=== PATIENT | female | born 1970 | race Asian ===

== ENCOUNTER → 2019-06-06 | Outpatient (CLI) | payer OTHER ==
[2019-06-07 06:06] LABS: RUBELLA AB IGG-REFLAB 3.92 index (Immune >0.99)
[2019-06-07 07:06] LABS: RUBEOLA (MEASLES) IGG >300.0 AU/mL (Immune >16.4)
== END | disposition home or self-care (01) ==
LOC: LABMN 07:48
PROVIDERS: ATTEND Internal Medicine
DX: Z02.1 Encounter for pre-employment examination (principal)
CPT/HCPCS: 86706; 86735; 86762; 86765; 86787

== ENCOUNTER 2022-03-31 10:53 | Inpatient (IN) | payer OTHER ==
[~2022-03-31] VITALS: Ht 157.5 cm; Wt 53.1 kg
[2022-03-31] MEDS ORDERED: ONDANSETRON HCL 4 MG TABLET PO PRN (16:15)
[2022-03-31 17:11] VITALS: BP 181/85
[2022-03-31 18:34] VITALS: BP 135/86
[2022-03-31] MEDS ORDERED: INFLUENZA VIRUS VACCINE QVS 2022-23 (6MO+)/PF 60 MCG/0.5 ML SYRINGE IM. ONE (19:00)
[2022-03-31] MEDS ORDERED: PNEUMOCOCCAL VACCINE POLYVALENT 0.5 ML VIAL [PPSV23] IM. ONE (19:00)
[2022-03-31 20:32] VITALS: BP 144/74
[2022-03-31] MEDS ORDERED: CLOTRIMAZOLE 1% 10 ML SOLUTION TP SCH (21:00)
[2022-03-31] MEDS: HEPARIN SODIUM,PORCINE 5,000 UNITS/ML VIAL SQ SCH (21:11)
[2022-03-31] MEDS: ETHYL ALCOHOL 62% ANTISEPTIC NASAL SANITIZER 0.6 ML AMPUL NASAL SCH (21:11)
[2022-03-31] MEDS: SENNOSIDES 8.6 MG TABLET PO SCH (21:11)
[2022-03-31] MEDS: DOCUSATE SODIUM 100 MG CAPSULE PO SCH (21:11)
[2022-03-31] MEDS: CLOTRIMAZOLE 1% 15 GM CREAM TP SCH (21:11)
[2022-03-31] MEDS: MELATONIN 3 MG TABLET PO PRN (21:11)
[2022-04-01 05:51] LABS: EOSINOPHILS % (AUTO) 4.8 % (1.0-6.0); HEMATOCRIT 27.7 % (36-46); HEMOGLOBIN 9.4 g/dL (12.0-16.0); LYMPHOCYTES % (AUTO) 24.5 % (22.0-44.0); MEAN CORPUSCULAR HGB CONC 34.1 G/dL (31.0-37.0); MEAN CORPUSCULAR VOLUME 88 fL (80-100); MONOCYTES # (AUTO) 0.4 K/uL (0.1-1.0); MONOCYTES % (AUTO) 9.1 % (2.0-9.0); NEUTROPHILS # (AUTO) 2.4 K/uL (1.8-7.7); NEUTROPHILS % (AUTO) 60.6 % (40.0-70.0); PLATELET COUNT (AUTO) 454 K/uL (150-450); RED BLOOD CELL COUNT(AUTO) 3.14 MIL/uL (4.00-5.20)
[2022-04-01 06:21] LABS: ALANINE AMINOTRANSFERASE 61 U/L (12-78); ALKALINE PHOSPHATASE 61 U/L (46-116); ANION GAP 7 mmol/L (8-16); ASPARTATE AMINOTRANSFERASE 30 U/L (15-37); BILIRUBIN,TOTAL 0.3 mg/dL (0.1-1.0); CALCIUM, TOTAL 9.2 mg/dL (8.8-10.5); CARBON DIOXIDE 28 mmol/L (22-29); CHLORIDE 102 mmol/L (98-107); CREATININE 0.57 mg/dL (0.60-1.30); GLUCOSE,RANDOM 107 mg/dL (70-110); SODIUM SERUM 137 mmol/L (136-145); TOTAL PROTEIN, SERUM 6.6 g/dL (6.4-8.2); UREA NITROGEN, BLOOD 17 mg/dL (7-18)
[2022-04-01 06:23] LABS: GLOMERULAR FILTR. RATE CALC > 60 mL/min (>60)
[2022-04-01] MEDS: ETHYL ALCOHOL 62% ANTISEPTIC NASAL SANITIZER 0.6 ML AMPUL NASAL SCH ×2 (08:19→21:05)
[2022-04-01] MEDS: HEPARIN SODIUM,PORCINE 5,000 UNITS/ML VIAL SQ SCH ×2 (08:19→21:04)
[2022-04-01] MEDS: MULTIVITAMINS WITH MINERALS, THERAPEUTIC TABLET PO SCH (08:19)
[2022-04-01] MEDS: DOCUSATE SODIUM 100 MG CAPSULE PO SCH ×2 (08:19→21:04)
[2022-04-01] MEDS: CLOTRIMAZOLE 1% 15 GM CREAM TP SCH ×2 (08:25→21:05)
[2022-04-01] MEDS ORDERED: EPOETIN ALFA 10,000 UNITS/ML 2 ML VIAL SQ ONE (09:00)
[2022-04-01 09:15] VITALS: BP 179/89
[2022-04-01] MEDS: LISINOPRIL 20 MG TABLET PO SCH (11:07)
[2022-04-01] MEDS: NYSTATIN 500,000 UNITS/5 ML SUSPENSION UDCUP PO SCH ×3 (13:29→21:05)
[2022-04-01 16:50] VITALS: BP 148/90
[2022-04-01 21:00] VITALS: BP 137/83
[2022-04-01] MEDS: SENNOSIDES 8.6 MG TABLET PO SCH (21:04)
[2022-04-01] MEDS: MELATONIN 3 MG TABLET PO PRN (21:05)
[2022-04-01] MEDS ORDERED: LISI-657 PO (23:49)
[2022-04-02 08:00] VITALS: BP 149/89
[2022-04-02] MEDS: ETHYL ALCOHOL 62% ANTISEPTIC NASAL SANITIZER 0.6 ML AMPUL NASAL SCH ×2 (08:34→20:27)
[2022-04-02] MEDS: DOCUSATE SODIUM 100 MG CAPSULE PO SCH ×2 (08:34→20:27)
[2022-04-02] MEDS: NYSTATIN 500,000 UNITS/5 ML SUSPENSION UDCUP PO SCH ×4 (08:35→20:27)
[2022-04-02] MEDS: LISINOPRIL 20 MG TABLET PO SCH (08:35)
[2022-04-02] MEDS: MULTIVITAMINS WITH MINERALS, THERAPEUTIC TABLET PO SCH (08:35)
[2022-04-02] MEDS: HEPARIN SODIUM,PORCINE 5,000 UNITS/ML VIAL SQ SCH ×2 (08:35→20:34)
[2022-04-02] MEDS: CLOTRIMAZOLE 1% 15 GM CREAM TP SCH ×2 (08:36→20:26)
[2022-04-02] MEDS ORDERED: OxyCODONE HCL 10 MG IR TABLET PO PRN (10:00)
[2022-04-02 20:02] VITALS: BP 129/74
[2022-04-02] MEDS: SENNOSIDES 8.6 MG TABLET PO SCH (20:27)
[2022-04-03 08:00] VITALS: BP 145/75
[2022-04-03] MEDS: ETHYL ALCOHOL 62% ANTISEPTIC NASAL SANITIZER 0.6 ML AMPUL NASAL SCH ×2 (08:31→20:43)
[2022-04-03] MEDS: NYSTATIN 500,000 UNITS/5 ML SUSPENSION UDCUP PO SCH ×4 (08:31→20:43)
[2022-04-03] MEDS: LISINOPRIL 20 MG TABLET PO SCH (08:32)
[2022-04-03] MEDS: MULTIVITAMINS WITH MINERALS, THERAPEUTIC TABLET PO SCH (08:32)
[2022-04-03] MEDS: HEPARIN SODIUM,PORCINE 5,000 UNITS/ML VIAL SQ SCH ×2 (08:32→20:44)
[2022-04-03] MEDS: DOCUSATE SODIUM 100 MG CAPSULE PO SCH ×2 (08:33→20:43)
[2022-04-03] MEDS: CLOTRIMAZOLE 1% 15 GM CREAM TP SCH ×2 (08:33→20:44)
[2022-04-03 11:00] VITALS: BP 132/76
[2022-04-03] MEDS: HYDROCHLOROTHIAZIDE 25 MG TABLET PO SCH (11:22)
[2022-04-03] MEDS: SENNOSIDES 8.6 MG TABLET PO SCH (20:43)
[2022-04-03 21:00] VITALS: BP 137/78
[2022-04-04 07:45] VITALS: BP 137/84
[2022-04-04] MEDS: ETHYL ALCOHOL 62% ANTISEPTIC NASAL SANITIZER 0.6 ML AMPUL NASAL SCH ×2 (08:10→20:07)
[2022-04-04] MEDS: MULTIVITAMINS WITH MINERALS, THERAPEUTIC TABLET PO SCH (08:11)
[2022-04-04] MEDS: NYSTATIN 500,000 UNITS/5 ML SUSPENSION UDCUP PO SCH ×4 (08:11→20:01)
[2022-04-04] MEDS: LISINOPRIL 20 MG TABLET PO SCH (08:11)
[2022-04-04] MEDS: DOCUSATE SODIUM 100 MG CAPSULE PO SCH ×2 (08:11→20:05)
[2022-04-04] MEDS: HYDROCHLOROTHIAZIDE 25 MG TABLET PO SCH (08:11)
[2022-04-04] MEDS: ACETAMINOPHEN 325 MG TABLET PO PRN ×2 (08:12→13:18)
[2022-04-04] MEDS: HEPARIN SODIUM,PORCINE 5,000 UNITS/ML VIAL SQ SCH ×2 (08:12→20:02)
[2022-04-04] MEDS: CLOTRIMAZOLE 1% 15 GM CREAM TP SCH ×2 (08:12→20:06)
[2022-04-04 20:00] VITALS: BP 129/76
[2022-04-04] MEDS: SENNOSIDES 8.6 MG TABLET PO SCH (20:05)
[2022-04-05] MEDS: ETHYL ALCOHOL 62% ANTISEPTIC NASAL SANITIZER 0.6 ML AMPUL NASAL SCH ×2 (08:25→20:46)
[2022-04-05 08:26] VITALS: BP 128/78
[2022-04-05] MEDS: ACETAMINOPHEN 325 MG TABLET PO PRN (08:26)
[2022-04-05] MEDS: NYSTATIN 500,000 UNITS/5 ML SUSPENSION UDCUP PO SCH ×4 (08:29→20:45)
[2022-04-05] MEDS: DOCUSATE SODIUM 100 MG CAPSULE PO SCH ×2 (08:29→20:46)
[2022-04-05] MEDS: HEPARIN SODIUM,PORCINE 5,000 UNITS/ML VIAL SQ SCH ×2 (08:30→20:45)
[2022-04-05] MEDS: LISINOPRIL 20 MG TABLET PO SCH (08:33)
[2022-04-05] MEDS: HYDROCHLOROTHIAZIDE 25 MG TABLET PO SCH (08:33)
[2022-04-05] MEDS: MULTIVITAMINS WITH MINERALS, THERAPEUTIC TABLET PO SCH (08:33)
[2022-04-05] MEDS: CLOTRIMAZOLE 1% 15 GM CREAM TP SCH ×3 (08:34→20:55)
[2022-04-05 20:10] VITALS: BP 21/58
[2022-04-05] MEDS: SENNOSIDES 8.6 MG TABLET PO SCH (20:46)
[2022-04-06] MEDS: ACETAMINOPHEN 325 MG TABLET PO PRN (08:39)
[2022-04-06] MEDS: ETHYL ALCOHOL 62% ANTISEPTIC NASAL SANITIZER 0.6 ML AMPUL NASAL SCH ×2 (08:40→20:23)
[2022-04-06] MEDS: MULTIVITAMINS WITH MINERALS, THERAPEUTIC TABLET PO SCH (08:41)
[2022-04-06] MEDS: HYDROCHLOROTHIAZIDE 25 MG TABLET PO SCH (08:43)
[2022-04-06] MEDS: LISINOPRIL 20 MG TABLET PO SCH (08:43)
[2022-04-06] MEDS: HEPARIN SODIUM,PORCINE 5,000 UNITS/ML VIAL SQ SCH ×2 (08:46→20:21)
[2022-04-06] MEDS: DOCUSATE SODIUM 100 MG CAPSULE PO SCH ×2 (08:47→20:22)
[2022-04-06] MEDS: NYSTATIN 500,000 UNITS/5 ML SUSPENSION UDCUP PO SCH ×4 (08:47→20:21)
[2022-04-06] MEDS: CLOTRIMAZOLE 1% 15 GM CREAM TP SCH ×2 (08:53→20:24)
[2022-04-06 09:00] VITALS: BP 126/75
[2022-04-06 19:54] VITALS: BP 117/68
[2022-04-06] MEDS: SENNOSIDES 8.6 MG TABLET PO SCH (20:22)
[2022-04-07] MEDS: ACETAMINOPHEN 325 MG TABLET PO PRN ×2 (05:28→21:43)
[2022-04-07 08:20] VITALS: BP 128/71
[2022-04-07] MEDS: NYSTATIN 500,000 UNITS/5 ML SUSPENSION UDCUP PO SCH ×4 (08:44→21:43)
[2022-04-07] MEDS: DOCUSATE SODIUM 100 MG CAPSULE PO SCH ×2 (08:44→21:00)
[2022-04-07] MEDS: ETHYL ALCOHOL 62% ANTISEPTIC NASAL SANITIZER 0.6 ML AMPUL NASAL SCH ×2 (08:44→21:40)
[2022-04-07] MEDS: HYDROCHLOROTHIAZIDE 25 MG TABLET PO SCH (08:45)
[2022-04-07] MEDS: MULTIVITAMINS WITH MINERALS, THERAPEUTIC TABLET PO SCH (08:49)
[2022-04-07] MEDS: LISINOPRIL 20 MG TABLET PO SCH (08:50)
[2022-04-07] MEDS: HEPARIN SODIUM,PORCINE 5,000 UNITS/ML VIAL SQ SCH ×2 (08:50→21:40)
[2022-04-07] MEDS: CLOTRIMAZOLE 1% 15 GM CREAM TP SCH ×2 (08:51→21:00)
[2022-04-07 19:46] VITALS: BP 121/86
[2022-04-07] MEDS: SENNOSIDES 8.6 MG TABLET PO SCH (21:00)
[2022-04-08 07:37] LABS: BASOPHILS % (AUTO) 1.4 % (0.0-2.0); EOSINOPHILS % (AUTO) 4.7 % (1.0-6.0); HEMATOCRIT 36.1 % (36-46); HEMOGLOBIN 11.9 g/dL (12.0-16.0); LYMPHOCYTES # (AUTO) 1.1 K/uL (1.0-4.8); LYMPHOCYTES % (AUTO) 32.3 % (22.0-44.0); MEAN CORPUSCULAR HEMOGLOBIN 29.2 pg (26.0-34.0); MEAN CORPUSCULAR VOLUME 89 fL (80-100); MONOCYTES # (AUTO) 0.4 K/uL (0.1-1.0); MONOCYTES % (AUTO) 11.1 % (2.0-9.0); NEUTROPHILS # (AUTO) 1.7 K/uL (1.8-7.7); NEUTROPHILS % (AUTO) 50.5 % (40.0-70.0); PLATELET COUNT (AUTO) 337 K/uL (150-450); RED BLOOD CELL COUNT(AUTO) 4.08 MIL/uL (4.00-5.20); RED CELL DISTRIBUTION WIDTH 19.8 % (11.5-14.5)
[2022-04-08] MEDS: ACETAMINOPHEN 325 MG TABLET PO PRN (08:18)
[2022-04-08] MEDS: HYDROCHLOROTHIAZIDE 25 MG TABLET PO SCH (08:19)
[2022-04-08] MEDS: ETHYL ALCOHOL 62% ANTISEPTIC NASAL SANITIZER 0.6 ML AMPUL NASAL SCH ×2 (08:19→21:27)
[2022-04-08] MEDS: MULTIVITAMINS WITH MINERALS, THERAPEUTIC TABLET PO SCH (08:21)
[2022-04-08] MEDS: LISINOPRIL 20 MG TABLET PO SCH (08:21)
[2022-04-08] MEDS: HEPARIN SODIUM,PORCINE 5,000 UNITS/ML VIAL SQ SCH ×2 (08:22→21:27)
[2022-04-08] MEDS: NYSTATIN 500,000 UNITS/5 ML SUSPENSION UDCUP PO SCH ×2 (08:23→12:56)
[2022-04-08] MEDS: CLOTRIMAZOLE 1% 15 GM CREAM TP SCH ×2 (08:32→21:00)
[2022-04-08] MEDS: DOCUSATE SODIUM 100 MG CAPSULE PO SCH ×2 (08:32→21:00)
[2022-04-08 09:00] VITALS: BP 144/77
[2022-04-08] MEDS ORDERED: SENNOSIDES 8.6 MG TABLET PO PRN (13:30)
[2022-04-08 21:00] VITALS: BP 111/65
[2022-04-09] MEDS: HYDROCHLOROTHIAZIDE 25 MG TABLET PO SCH (08:25)
[2022-04-09] MEDS: ACETAMINOPHEN 325 MG TABLET PO PRN ×2 (08:25→18:30)
[2022-04-09] MEDS: LISINOPRIL 20 MG TABLET PO SCH (08:26)
[2022-04-09] MEDS: MULTIVITAMINS WITH MINERALS, THERAPEUTIC TABLET PO SCH (08:26)
[2022-04-09] MEDS: HEPARIN SODIUM,PORCINE 5,000 UNITS/ML VIAL SQ SCH ×2 (08:27→20:52)
[2022-04-09 08:30] VITALS: BP_SYST 138; BP_SYST 144; BP_DIAS 68; BP_DIAS 77
[2022-04-09] MEDS: ETHYL ALCOHOL 62% ANTISEPTIC NASAL SANITIZER 0.6 ML AMPUL NASAL SCH ×2 (09:00→20:52)
[2022-04-09] MEDS: CLOTRIMAZOLE 1% 15 GM CREAM TP SCH ×2 (09:00→21:00)
[2022-04-09] MEDS: DOCUSATE SODIUM 100 MG CAPSULE PO SCH (09:00)
[2022-04-09] MEDS ORDERED: DOCUSATE SODIUM 100 MG CAPSULE PO PRN (11:45)
[2022-04-09 20:20] VITALS: BP 106/70
[2022-04-10] MEDS ORDERED: MULT-1239 PO (02:03)
[2022-04-10 07:45] VITALS: BP 119/79
[2022-04-10] MEDS: ETHYL ALCOHOL 62% ANTISEPTIC NASAL SANITIZER 0.6 ML AMPUL NASAL SCH ×2 (08:49→20:03)
[2022-04-10] MEDS: LISINOPRIL 20 MG TABLET PO SCH (08:50)
[2022-04-10] MEDS: HYDROCHLOROTHIAZIDE 25 MG TABLET PO SCH (08:50)
[2022-04-10] MEDS: MULTIVITAMINS WITH MINERALS, THERAPEUTIC TABLET PO SCH (08:50)
[2022-04-10] MEDS: HEPARIN SODIUM,PORCINE 5,000 UNITS/ML VIAL SQ SCH ×2 (08:50→20:02)
[2022-04-10] MEDS: CLOTRIMAZOLE 1% 15 GM CREAM TP SCH ×2 (08:50→19:56)
[2022-04-10] MEDS: ACETAMINOPHEN 325 MG TABLET PO PRN (11:42)
[2022-04-10 20:00] VITALS: BP 119/69
[2022-04-11] MEDS: ACETAMINOPHEN 325 MG TABLET PO PRN (06:40)
[2022-04-11] MEDS: MULTIVITAMINS WITH MINERALS, THERAPEUTIC TABLET PO SCH (08:10)
[2022-04-11] MEDS: HEPARIN SODIUM,PORCINE 5,000 UNITS/ML VIAL SQ SCH (08:10)
[2022-04-11] MEDS: HYDROCHLOROTHIAZIDE 25 MG TABLET PO SCH (08:10)
[2022-04-11] MEDS: LISINOPRIL 20 MG TABLET PO SCH (08:10)
[2022-04-11] MEDS: ETHYL ALCOHOL 62% ANTISEPTIC NASAL SANITIZER 0.6 ML AMPUL NASAL SCH ×2 (08:10→21:14)
[2022-04-11] MEDS: CLOTRIMAZOLE 1% 15 GM CREAM TP SCH ×2 (08:11→21:00)
[2022-04-11 09:05] VITALS: BP 126/77
[2022-04-11] MEDS ORDERED: ACET-2247 PO (10:05)
[2022-04-11] MEDS ORDERED: LISI-894 PO (10:05)
[2022-04-11] MEDS ORDERED: HYDR25TA2 PO (10:05)
[2022-04-11 20:20] VITALS: BP 116/73
[2022-04-12] MEDS: CLOTRIMAZOLE 1% 15 GM CREAM TP SCH ×2 (09:00→09:06)
[2022-04-12] MEDS: MULTIVITAMINS WITH MINERALS, THERAPEUTIC TABLET PO SCH (09:05)
[2022-04-12] MEDS: HYDROCHLOROTHIAZIDE 25 MG TABLET PO SCH (09:05)
[2022-04-12] MEDS: ETHYL ALCOHOL 62% ANTISEPTIC NASAL SANITIZER 0.6 ML AMPUL NASAL SCH (09:05)
[2022-04-12] MEDS: LISINOPRIL 20 MG TABLET PO SCH (09:05)
[2022-04-12 09:11] VITALS: BP 117/69
[2022-04-12] MEDS: ACETAMINOPHEN 325 MG TABLET PO PRN (09:11)
== END 2022-04-12 12:20 | disposition home or self-care (01) | DRG 64 ==
LOC: EDSTATUS 11:05 → 2WR 14:55
PROVIDERS: ADMIT Physical Medicine & Rehabilitation; ATTEND Physical Medicine & Rehabilitation
DX: I60.9 Nontraumatic subarachnoid hemorrhage, unspecified (principal); G93.5 Compression of brain; J96.90 Respiratory failure, unspecified, unspecified whether with hypoxia or hypercapnia; E46 Unspecified protein-calorie malnutrition; G81.91 Hemiplegia, unspecified affecting right dominant side; R47.01 Aphasia; R78.81 Bacteremia; I10 Essential (primary) hypertension; R13.10 Dysphagia, unspecified; R41.89 Other symptoms and signs involving cognitive functions and awareness; I48.91 Unspecified atrial fibrillation; D64.9 Anemia, unspecified; B37.9 Candidiasis, unspecified; R51.9 Headache, unspecified; Z79.899 Other long term (current) drug therapy; Z68.21 Body mass index [BMI] 21.0-21.9, adult
CPT/HCPCS: 74018; 80053; 85025; 87081; 90686; 92507; 92526; 92610; 93970; 97110; 97112; 97116; 97150; 97163; 97167; 97530; 97535; 99366; J0885; J1644; 36415-L1; 36415-TC; G0008

== ENCOUNTER → 2022-08-23 | Outpatient (CLI) | payer OTHER ==
[~2022-08-23] MED LIST: ACET-2247 PO; HYDR-4870 PO; LISI-894 PO; MULT-1239 PO
[2022-08-23 15:25] LABS: BASOPHILS % (AUTO) 0.7 % (0.0-2.0); EOSINOPHILS % (AUTO) 1.4 % (1.0-6.0); HEMATOCRIT 39.1 % (36-46); LYMPHOCYTES # (AUTO) 1.4 K/uL (1.0-4.8); LYMPHOCYTES % (AUTO) 24.7 % (22.0-44.0); MEAN CORPUSCULAR HEMOGLOBIN 28.3 pg (26.0-34.0); MEAN CORPUSCULAR HGB CONC 33.2 G/dL (31.0-37.0); MEAN CORPUSCULAR VOLUME 85 fL (80-100); MONOCYTES # (AUTO) 0.3 K/uL (0.1-1.0); NEUTROPHILS % (AUTO) 68.2 % (40.0-70.0); PLATELET COUNT (AUTO) 271 K/uL (150-450); RED BLOOD CELL COUNT(AUTO) 4.58 MIL/uL (4.00-5.20); RED CELL DISTRIBUTION WIDTH 15.7 % (11.5-14.5)
[2022-08-23 15:49] LABS: ALANINE AMINOTRANSFERASE 18 U/L (12-78); ALBUMIN 4.3 g/dL (3.4-5.0); ALKALINE PHOSPHATASE 45 U/L (46-116); ANION GAP 11 mmol/L (8-16); ASPARTATE AMINOTRANSFERASE 12 U/L (15-37); BILIRUBIN,TOTAL 1.2 mg/dL (0.1-1.0); CALCIUM, TOTAL 9.3 mg/dL (8.8-10.5); CARBON DIOXIDE 28 mmol/L (22-29); CHLORIDE 98 mmol/L (98-107); CHOL/HDL RATIO 2.6 (3.9-5.7); CHOLESTEROL 160 mg/dL (131-200); CREATININE 0.68 mg/dL (0.60-1.30); GLOMERULAR FILTR. RATE CALC > 60 mL/min (>60); GLUCOSE,RANDOM 93 mg/dL (70-110); HDL CHOLESTEROL 62 mg/dL (40-60); LDL CHOL (CALC.) 89 mg/dL (0-130); POTASSIUM 3.5 mmol/L (3.5-5.1); SODIUM SERUM 137 mmol/L (136-145); THYROID STIMULATING HORMONE 1.35 uIU/mL (0.36-3.74); TOTAL PROTEIN, SERUM 7.9 g/dL (6.4-8.2); TRIGLYCERIDES 43 mg/dL (15-150); UREA NITROGEN, BLOOD 11 mg/dL (7-18)
[2022-08-23 16:44] LABS: HEMOGLOBIN A1C 5.3 % (3.8-5.6)
[2022-08-23 19:18] LABS: FOLATE SERUM 19.1 ng/mL (5.4-)
== END | disposition home or self-care (01) ==
LOC: LABMN 14:48
PROVIDERS: ATTEND Family Medicine
DX: I72.9 Aneurysm of unspecified site (principal)
CPT/HCPCS: 80053; 80061; 82607; 82746; 83036; 84443; 85025

== ENCOUNTER 2022-08-24 20:28 | Emergency (ER) | payer OTHER ==
[~2022-08-24] VITALS: Ht 157.5 cm; Wt 118.0 kg
[2022-08-24] MEDS ORDERED: SODIUM CHLORIDE 0.9% 1,000 ML IV ONE (22:45)
[2022-08-24] MEDS ORDERED: METOCLOPRAMIDE HCL 5 MG/ML 2 ML VIAL IVP ONE (22:45)
[2022-08-24 23:12] LABS: HEMATOCRIT 37.3 % (36-46); HEMOGLOBIN 12.3 g/dL (12.0-16.0); MEAN CORPUSCULAR HEMOGLOBIN 28.1 pg (26.0-34.0); MEAN CORPUSCULAR HGB CONC 32.8 G/dL (31.0-37.0); MEAN CORPUSCULAR VOLUME 86 fL (80-100); PLATELET COUNT (AUTO) 205 K/uL (150-450); RED BLOOD CELL COUNT(AUTO) 4.36 MIL/uL (4.00-5.20); RED CELL DISTRIBUTION WIDTH 15.6 % (11.5-14.5)
[2022-08-24 23:25] LABS: ANION GAP 8 mmol/L (8-16); CALCIUM, TOTAL 9.2 mg/dL (8.8-10.5); CARBON DIOXIDE 27 mmol/L (22-29); CHLORIDE 98 mmol/L (98-107); CREATININE 0.71 mg/dL (0.60-1.30); GLOMERULAR FILTR. RATE CALC > 60 mL/min (>60); GLUCOSE,RANDOM 103 mg/dL (70-110); POTASSIUM 3.7 mmol/L (3.5-5.1); SODIUM SERUM 133 mmol/L (136-145); UREA NITROGEN, BLOOD 9 mg/dL (7-18)
[2022-08-24 23:31] LABS: ALANINE AMINOTRANSFERASE 15 U/L (12-78); ALBUMIN 3.8 g/dL (3.4-5.0); ALKALINE PHOSPHATASE 45 U/L (46-116); ASPARTATE AMINOTRANSFERASE 12 U/L (15-37); BILIRUBIN,TOTAL 1.9 mg/dL (0.1-1.0); LIPASE 98 U/L (73-393); TOTAL PROTEIN, SERUM 7.2 g/dL (6.4-8.2)
[2022-08-24 23:40] LABS: BAND NEUTROPHILS % (MANUAL) 2 % (0-5); LYMPHOCYTES % (MANUAL) 3 % (22-44); MONOCYTES % (MANUAL) 4 % (2-9); SEGMENTED NEUTROPHILS % 91 % (40-70)
[2022-08-25 01:12] VITALS: BP 117/74
== END 2022-08-25 01:33 | disposition home or self-care (01) ==
LOC: EMS 20:35
DX: R47.01 Aphasia (principal); R11.2 Nausea with vomiting, unspecified; I10 Essential (primary) hypertension; I63.9 Cerebral infarction, unspecified
CPT/HCPCS: 70450; 80053; 83690; 84484; 85025; 93005; 99284